=== PATIENT | male | born 1960 | race Caucasian/White ===

== ENCOUNTER 2019-06-18 09:24 | Day surgery (SDC) | payer BC ==
[2019-06-18] MEDS ORDERED: PROPOFOL 10 MG/ML VIAL IV ONE (09:25)
[2019-06-18] MEDS ORDERED: MIDAZOLAM HCL 2MG/2ML VIAL IV ONE (09:25)
[2019-06-18] MEDS ORDERED: LIDOCAINE 2% MDV (20MG/ML) 20ML VIAL IV ONE (09:25)
--- NOTE | 2019-06-19 11:10 | Operative Note ---
OPERATION: COLONOSCOPY to the cecum with cold snare polypectomy x1. INDICATION: Prior history of adenomatous polyps. The patient returns at this time after 3 years for surveillance. ANESTHESIA: Intravenous sedation was administered by the department of anesthesiology and included Diprivan titrated to effect. PROCEDURE: Following informed consent from this alert individual including a discussion of the risks and benefits of the procedure and an opportunity for the patient to ask questions, the patient was in the left lateral decubitus position. A digital rectal examination was performed. No abnormalities were noted. Following this, the Olympus ALQ426 video colonoscope was inserted into the rectum without resistance. The rectal mucosa had a normal appearance with normal folds and distensibility. The colonoscope was advanced up through the bowel to the level of the cecum without much difficulty. Throughout the bowel the mucosa appeared normal, the folds were normal, and the bowel was fairly well distensible. The cecum was defined by noting the appendiceal orifice and ileocecal valve. From the base of the cecum, the colonoscope was then slowly withdrawn. Overall, the colon preparation was good. In the descending colon there was a sessile 4 mm polyp noted which was removed with cold snare polypectomy and suctioned through the colonoscope into a collection trap. No other polyps were seen. Retroflexion in the rectum did demonstrate small internal hemorrhoids. The endoscope was straightened and removed. The patient tolerated the procedure well and was returned to the recovery area in stable condition. IMPRESSION: 1. A 4 mm descending colon polyp removed with cold snare polypectomy. 2. Internal hemorrhoids. RECOMMENDATIONS: The patient was advised he should have recheck colonoscopy in 5 years' time or sooner should problems arise pending the pathology report. Followup will otherwise be with Keven Gonzalez DO. As always, thank you for allowing me to participate in the care of your patient. MARLENE
== END 2019-06-18 11:29 | disposition home or self-care (01) ==
LOC: HOP 09:24
PROVIDERS: ATTEND Internal Medicine Gastroenterology
DX: Z09 Encounter for follow-up examination after completed treatment for conditions other than malignant neoplasm (principal); Z86.010 Personal history of colon polyps; K63.5 Polyp of colon; K64.8 Other hemorrhoids; M54.9 Dorsalgia, unspecified